=== PATIENT | female | born 1950 | race African-American/Black ===

== ENCOUNTER 2017-06-29 12:22 | Inpatient (IN) | payer MEDICAID, MEDICARE ==
[~2017-06-29] VITALS: Ht 154.9 cm; Wt 73.5 kg
[2017-06-29 12:38] VITALS: BP 133/87
[2017-06-29] MEDS: Ipratropium 0.02% Inh Soln 2.5ml UD HHN SCH ×3 (12:47→14:00)
[2017-06-29] MEDS: Albuterol ud Inhalation HHN SCH ×3 (12:47→14:00)
[2017-06-29] MEDS ORDERED: Sodium Chloride 500ML 500 ML IV ONE (14:07)
[2017-06-29] MEDS ORDERED: Solu-MEDROL 125mg Inj IVP ONE (14:15)
[2017-06-29] MEDS ORDERED: ADVAIR HFA 115-12 GM INH (14:24)
[2017-06-29] MEDS ORDERED: METFORMIN HCL500 M1 ORAL (14:24)
[2017-06-29] MEDS ORDERED: AMLODIPINE BESYL5 MG ORAL (14:24)
[2017-06-29] MEDS ORDERED: ALBUTEROL2.5 MG/3 M INH (14:24)
[2017-06-29 14:43] LABS: BASOPHILS % (AUTO) 1.2 % (0.0-2.0); EOSINOPHILS % (AUTO) 1.7 % (0.0-3.0); HEMATOCRIT 42.5 % (37.0-47.0); LYMPHOCYTES % (AUTO) 25.8 % (20.0-45.0); MEAN CORPUSCULAR VOLUME 89 FL (80-99); MONOCYTES % (AUTO) 6.2 % (1.0-10.0); PLATELET COUNT 314 K/UL (150-450); RED BLOOD COUNT 4.77 M/UL (4.20-5.40); RED CELL DISTRIBUTION WIDTH 11.5 % (11.6-14.8); WHITE BLOOD COUNT 11.4 K/UL (4.8-10.8)
[2017-06-29 14:54] LABS: ANION GAP 11 mmol/L (5-15); BLOOD UREA NITROGEN 10 mg/dL (7-18); CARBON DIOXIDE 27 MMOL/L (21-32); CHLORIDE 100 MMOL/L (98-107); CREATININE 0.9 MG/DL (0.55-1.30); POTASSIUM 3.3 MMOL/L (3.5-5.1); SODIUM 138 MMOL/L (136-145)
[2017-06-29 15:00] VITALS: BP 151/80
[2017-06-29 15:08] LABS: ALANINE AMINOTRANSFERASE 38 U/L (12-78); ALBUMIN 3.9 G/DL (3.4-5.0); ALBUMIN/GLOBULIN RATIO 0.8 (1.0-2.7); ALKALINE PHOSPHATASE 141 U/L (46-116); ASPARTATE AMINO TRANSFERASE 22 U/L (15-37); BILIRUBIN,TOTAL 0.6 MG/DL (0.2-1.0)
--- NOTE | 2017-06-29 15:12 | Emergency Room Report ---
History of Present Illness General Chief Complaint: Asthma Source: Patient, Medical Record Present Illness HPI 66-year-old female presents ED for evaluation. Patient complaining of shortness of breath and wheezing the last 3 days. History of asthma/COPD. Denies fevers or chills. Denies chest pain. States cough which is dry. No other aggravating relieving factors. Denies any other associated symptoms Allergies: Uncoded Allergies: SULFA (Allergy, Unknown, 05/05/15) Patient History Past Medical History: DM, HTN, asthma, COPD Past Surgical History: none Pertinent Family History: none Social History: Denies: smoking, alcohol use, drug use Now: No Immunizations: UTD Reviewed Nursing Documentation: PMH: Agreed, PSxH: Agreed Nursing Documentation-PMH Past Medical History: No History, Except For Hx Hypertension: Yes Hx Asthma: Yes Hx COPD: Yes Hx Diabetes: Yes Review of Systems All Other Systems: negative except mentioned in HPI Physical Exam Vital Signs Date Time Temp Pulse Resp B/P (MAP) Pulse Ox O2 Delivery O2 Flow Rate FiO2 06/29/17 12:28 98.0 124 18 130/73 99 Room Air 98.1 Sp02 EP Interpretation: reviewed, normal General Appearance: no apparent distress, alert, GCS 15, non-toxic Head: normocephalic, atraumatic Eyes: bilateral eye normal inspection, bilateral eye PERRL ENT: hearing grossly normal, normal pharynx, no angioedema, normal voice Neck: full range of motion, supple/symm/no masses Respiratory: chest non-tender, speaking full sentences, wheezing Cardiovascular #1: regular rate, rhythm, no edema Cardiovascular #2: 2+ carotid (R), 2+ carotid (L), 2+ radial (R), 2+ radial (L) , 2+ dorsalis pedis (R), 2+ dorsalis pedis (L) Gastrointestinal: normal bowel sounds, non tender, soft, non-distended, no guarding, no rebound Rectal: deferred Genitourinary: normal inspection, no CVA tenderness Musculoskeletal: back normal, gait/station normal, normal range of motion, non- tender Neurologic: alert, oriented x3, responsive, motor strength/tone normal, sensory intact, speech normal Psychiatric: judgement/insight normal, memory normal, mood/affect normal, no suicidal/homicidal ideation Reflexes: 3+ bicep (R), 3+ bicep (L), 3+ tricep (R), 3+ tricep (L), 3+ knee (R) , 3+ knee (L) Skin: normal color, no rash, warm/dry, well hydrated Lymphatic: no adenopathy Medical Decision Making Diagnostic Impression: Primary Impression: COPD exacerbation ER Course Hospital Course 64-year-old F presenting to ED with SOB. h/o COPD Differential diagnoses include: Pneumonia, CHF exacerbation, pneumothorax, fluid overload Clinical course Patient placed on stretcher. On campus monitor with stable vitals. After initial history and physical, I ordered nebulizer treatments. I ordered labs, IV fluids, EKG, chest x-ray, blood cultures, UA. Labs - noted leukocytosis noted, hemoglobin/hematocrit stable, electrolytes okay, lactate > 3, troponins negative CXR - no infiltrates EKG - NSR, no acute ischemic changes interpreted by me abx given. ivfs given. Patient will be admitted for further inpatient workup I feel this is a highly complex case requiring extensive working including EKG/ Rhythm strip, Xray/CT/US, Blood/urine lab work, repeat exams while in ED, and administration of strong opiates/narcotics for pain control, admission to hospital or close patient follow up. Diagnosis - COPD exacerbation Patient admitted to telemetry in serious condition Labs Test 06/29/17 14:20 White Blood Count 11.4 K/UL (4.8-10.8) Red Blood Count 4.77 M/UL (4.20-5.40) Hemoglobin 14.0 G/DL (12.0-16.0) Hematocrit 42.5 % (37.0-47.0) Mean Corpuscular Volume 89 FL (80-99) Mean Corpuscular Hemoglobin 29.3 PG (27.0-31.0) Mean Corpuscular Hemoglobin Concent 32.9 G/DL (32.0-36.0) Red Cell Distribution Width 11.5 % (11.6-14.8) Platelet Count 314 K/UL (150-450) Mean Platelet Volume 7.1 FL (6.5-10.1) Neutrophils (%) (Auto) 65.0 % (45.0-75.0) Lymphocytes (%) (Auto) 25.8 % (20.0-45.0) Monocytes (%) (Auto) 6.2 % (1.0-10.0) Eosinophils (%) (Auto) 1.7 % (0.0-3.0) Basophils (%) (Auto) 1.2 % (0.0-2.0) Sodium Level 138 MMOL/L (136-145) Potassium Level 3.3 MMOL/L (3.5-5.1) Chloride Level 100 MMOL/L (98-107) Carbon Dioxide Level 27 MMOL/L (21-32) Anion Gap 11 mmol/L (5-15) Blood Urea Nitrogen 10 mg/dL (7-18) Creatinine 0.9 MG/DL (0.55-1.30) Estimat Glomerular Filtration Rate > 60 mL/min (>60) Glucose Level 193 MG/DL (74-106) Lactic Acid Level 3.60 mmol/L (0.66-2.22) Calcium Level 10.0 MG/DL (8.5-10.1) Total Bilirubin 0.6 MG/DL (0.2-1.0) Aspartate Amino Transf (AST/SGOT) 22 U/L (15-37) Alanine Aminotransferase (ALT/SGPT) 38 U/L (12-78) Alkaline Phosphatase 141 U/L (46-116) Pro-B-Type Natriuretic Peptide 47 pg/mL (0-125) Total Protein 8.5 G/DL (6.4-8.2) Albumin 3.9 G/DL (3.4-5.0) Globulin 4.6 g/dL Albumin/Globulin Ratio 0.8 (1.0-2.7) EKG Diagnostic Results Rate: tachycardiac Rhythm: NSR ST Segments: no acute changes ASA given to the pt in ED: No Rhythm Strip Diag. Results EP Interpretation: yes Rhythm: NSR, no PVC's, no ectopy Chest X-Ray Diagnostic Results Chest X-Ray Diagnostic Results : Chest X-Ray Ordered: Yes # of Views/Limited/Complete: 1 View Indication: Shortness of Breath EP Interpretation: Yes Interpretation: no consolidation, no effusion, no pneumothorax, no acute cardiopulmonary disease Impression: No acute disease Electronically Signed by: Electronically signed by Nino Loomis MD Last Vital Signs Date Time Temp Pulse Resp B/P (MAP) Pulse Ox O2 Delivery O2 Flow Rate FiO2 2/23/18 14:30 124 18 100 Room Air 06/29/17 12:38 98.1 133/87 98.1 Status: improved Disposition: XFER SHT-TRM HOSP Condition: Serious Referrals: [facility],REFERRING (PCP) NINO LOOMIS M.D. Jun 29, 2017 15:12
[2017-06-29] MEDS ORDERED: NS 1000ml 2,200 ML IVLG ONE (15:30)
[2017-06-29 15:49] LABS: BILIRUBIN, URINE NEGATIVE (NEGATIVE); GLUCOSE, URINE (UA) NEGATIVE (NEGATIVE); KETONES,URINE 3+ (NEGATIVE); LEUKOCYTE ESTERASE ,URINE 3+ (NEGATIVE); NITRITE,URINE NEGATIVE (NEGATIVE); PH,URINE 5 (4.5-8.0); PROTEIN,URINE 2+ (NEGATIVE); UROBILINOGEN,URINE NORMAL MG/DL (0.0-1.0)
[2017-06-29 15:50] LABS: APPEARANCE,URINE CLEAR; COLOR,URINE YELLOW
--- NOTE | 2017-06-29 15:51 | Diagnostic Imaging Report ---
Indication: Cough Technique: One view of the chest Comparison: none Findings: Lungs and pleural spaces are clear. Heart size is upper limits normal Impression: No acute process
[2017-06-29 16:56] VITALS: BP 157/78
[2017-06-29] MEDS ORDERED: MULTIVITAMINS1 EAC2 ORAL (18:21)
[2017-06-29] MEDS ORDERED: VITAMIN D250000 UNI1 ORAL (18:21)
[2017-06-29 18:30] VITALS: BP 164/93
[2017-06-29 20:23] VITALS: BP 143/88
[2017-06-30] VITALS: BP 154/90
[2017-06-30] MEDS: Solu-MEDROL 40mg Inj IVP SCH ×5 (00:20→23:43)
[2017-06-30] MEDS: Albuterol/Ipratropium 3ml neb HHN SCH ×4 (01:31→19:34)
[2017-06-30 04:00] VITALS: BP 159/88
[2017-06-30 08:00] VITALS: BP 144/86
[2017-06-30] MEDS: metFORMIN 500mg tab ORAL SCH ×2 (08:46→17:26)
[2017-06-30 12:00] VITALS: BP 147/81
[2017-06-30] MEDS: guaiFENesin w/Codeine 5ml Liq ud ORAL PRN (13:43)
[2017-06-30 16:00] VITALS: BP 143/72
--- NOTE | 2017-06-30 16:00 | History and Physical Report ---
DATE OF ADMISSION: 06/29/2017 HISTORY OF PRESENT ILLNESS: This is a 66-year-old female with a long-standing history of bronchial asthma/COPD. She came to the hospital with shortness of breath and wheezing. She is symptomatic for the last 3 days. She states she had upper respiratory infection. She denies any fevers or myalgias. She takes Advair and ProAir at home for COPD. ALLERGIES: Sulfa. PAST MEDICAL HISTORY: Notable for hypertension, diabetes, asthma and COPD. PAST SURGICAL HISTORY: None. SOCIAL HISTORY: Denies alcohol, tobacco, or substance use. REVIEW OF SYSTEMS: She denies any headaches, hematemesis, melena, hematochezia, or weight loss. PHYSICAL EXAMINATION: GENERAL: Reveals a 66-year-old female. HEENT: Unremarkable. CHEST: Exam showed bilateral rhonchi and wheezing. ABDOMEN: Soft. NEUROLOGIC: Nonfocal. VITAL SIGNS: Blood pressure 130/70, heart rate 74, and respiratory rate . She is afebrile. LABORATORY DATA: Lab testing shows normal CBC and BMP. White count borderline . Chemistry is unremarkable. Lactic acid 3.6, now 4.6. IMAGING STUDIES: X-ray of the chest is negative for any acute pathology. No infiltrates are noted. EKG shows sinus tachycardia. IMPRESSION: 1. Acute exacerbation of bronchial asthma. 2. Chronic obstructive pulmonary disease. 3. Hypertension. 4. Diabetes. DISCUSSION: Admit to the hospital. We will start the patient on steroids and antibiotics. Continue home medications such as at this time, include amlodipine and metformin. We will check laboratories in a.m. including lactic acid. Order SCDs. 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 Jose Cummings M.D. DR: KVNG JOB#: [id number] CC:
[2017-06-30 20:00] VITALS: BP 150/80
[2017-07-01] VITALS: BP 136/61
[2017-07-01] MEDS: Albuterol/Ipratropium 3ml neb HHN SCH ×2 (01:33→06:52)
[2017-07-01] MEDS: guaiFENesin w/Codeine 5ml Liq ud ORAL PRN ×2 (02:09→09:20)
[2017-07-01 04:00] VITALS: BP 132/68
[2017-07-01] MEDS: Solu-MEDROL 40mg Inj IVP SCH ×2 (06:10→12:00)
[2017-07-01 08:00] VITALS: BP 148/84
[2017-07-01 08:09] LABS: HEMATOCRIT 36.7 % (37.0-47.0); HEMOGLOBIN 12.7 G/DL (12.0-16.0); MEAN CORPUSCULAR VOLUME 87 FL (80-99); PLATELET COUNT 306 K/UL (150-450); RED BLOOD COUNT 4.24 M/UL (4.20-5.40); RED CELL DISTRIBUTION WIDTH 11.3 % (11.6-14.8); WHITE BLOOD COUNT 19.9 K/UL (4.8-10.8)
[2017-07-01 08:26] LABS: ANION GAP 11 mmol/L (5-15); BLOOD UREA NITROGEN 16 mg/dL (7-18); CALCIUM 9.4 MG/DL (8.5-10.1); CARBON DIOXIDE 24 MMOL/L (21-32); CHLORIDE 102 MMOL/L (98-107); CREATININE 0.8 MG/DL (0.55-1.30); POTASSIUM 3.7 MMOL/L (3.5-5.1); SODIUM 137 MMOL/L (136-145)
[2017-07-01] MEDS: metFORMIN 500mg tab ORAL SCH (09:20)
--- NOTE | 2017-07-01 11:59 | Pulmonology Progress Note ---
Assessment/Plan Assessment/Plan IMPRESSION: 1. Acute exacerbation of bronchial asthma. 2. Chronic obstructive pulmonary disease. 3. Hypertension. 4. Diabetes. DISCUSSION: DC home on PO steroid and levaquin Subjective Interval Events: less SOB;opverall better Constitutional: Reports: no symptoms HEENT: Repors: no symptoms Respiratory: Reports: no symptoms Cardiovascular: Reports: no symptoms Gastrointestinal/Abdominal: Reports: no symptoms Allergies: Uncoded Allergies: SULFA (Allergy, Unknown, 05/05/15) Objective Last 24 Hour Vital Signs Date Time Temp Pulse Resp B/P (MAP) Pulse Ox O2 Delivery O2 Flow Rate FiO2 07/01/17 09:20 100 132/68 07/01/17 06:55 100 20 100 Room Air 21 07/01/17 06:45 95 20 98 Room Air 21 07/01/17 04:00 100 07/01/17 04:00 97.0 100 23 132/68 93 Room Air 97.0 07/01/17 01:34 102 20 99 Room Air 21 07/01/17 01:33 98 20 96 Room Air 21 07/01/17 00:00 97.5 103 22 136/61 94 Room Air 97.5 07/01/17 00:00 103 06/30/17 20:00 98.4 125 22 150/80 95 Room Air 98.4 06/30/17 20:00 119 06/30/17 19:33 106 20 99 Room Air 21 06/30/17 19:32 101 20 98 Room Air 21 06/30/17 16:00 112 06/30/17 16:00 98.2 118 18 143/72 95 98.2 06/30/17 12:47 104 18 99 Room Air 06/30/17 12:37 103 18 97 Room Air 06/30/17 12:00 104 06/30/17 12:00 98.2 110 21 147/81 96 98.2 Intake and Output 06/30/17 07/01/17 19:00 07:00 Intake Total 800 ml Balance 800 ml Intake Oral 800 ml # Voids 5 General Appearance: no acute distress HEENT: normocephalic Respiratory/Chest: chest wall non-tender, lungs clear Cardiovascular: normal peripheral pulses, normal rate Abdomen: normal bowel sounds Microbiology Date/Time Source Procedure Growth Status 06/29/17 14:20 Blood Blood Culture - Preliminary NO GROWTH AFTER 24 HOURS Resulted 06/29/17 14:20 Blood Blood Culture - Preliminary NO GROWTH AFTER 24 HOURS Resulted 06/29/17 14:20 Nasal Nares Influenza Types A,B Antigen (ERINN) - Final Complete 06/29/17 15:20 Urine,Clean Catch Urine Culture - Preliminary Mixed Gram Positive Organism Resulted Laboratory Tests 07/01/17 07:40: White Blood Count 19.9H, Red Blood Count 4.24, Hemoglobin 12.7, Hematocrit 36.7L , Mean Corpuscular Volume 87, Mean Corpuscular Hemoglobin 30.0, Mean Corpuscular Hemoglobin Concent 34.6, Red Cell Distribution Width 11.3L, Platelet Count 306, Mean Platelet Volume 6.6, Neutrophils (%) (Auto) , Lymphocytes (%) (Auto) , Monocytes (%) (Auto) , Eosinophils (%) (Auto) , Basophils (%) (Auto) , Differential Total Cells Counted 100, Neutrophils % ( Manual) 83H, Lymphocytes % (Manual) 15L, Monocytes % (Manual) 2, Eosinophils % ( Manual) 0, Basophils % (Manual) 0, Band Neutrophils 0, Platelet Estimate Adequate, Platelet Morphology Normal, Red Blood Cell Morphology Normal, Sodium Level 137, Potassium Level 3.7, Chloride Level 102, Carbon Dioxide Level 24, Anion Gap 11, Blood Urea Nitrogen 16, Creatinine 0.8, Estimat Glomerular Filtration Rate > 60, Glucose Level 247H, Lactic Acid Level 3.40H, Calcium Level 9.4 07/01/17 10:15: Lactic Acid Level 6.60H Current Medications Medications (Trade) Dose Ordered Sig/Crys Route PRN Reason Start Time Stop Time Status Last Admin Dose Admin Albuterol/ Ipratropium (Albuterol/ Ipratropium) 3 ml Q6HRT HHN 06/30/17 01:00 07/05/17 00:59 07/01/17 06:52 Amlodipine Besylate (Norvasc) 5 mg DAILY ORAL 06/30/17 09:00 07/30/17 08:59 07/01/17 09:20 Guaifenesin/ Codeine Phosphate (Robitussin with codeine) 5 ml Q6H PRN ORAL For Cough 06/30/17 09:45 07/30/17 09:44 07/01/17 09:20 Metformin HCl (Glucophage) 500 mg TWICE A DAY ORAL 06/30/17 09:00 07/30/17 08:59 07/01/17 09:20 Methylprednisolone Sodium Succinate (Solu-MEDROL) 40 mg EVERY 6 HOURS IVP 06/30/17 00:00 07/30/17 00:00 07/01/17 06:10 Jose Cummings MD Jul 01, 2017 11:59
[2017-07-01 12:00] VITALS: BP 159/77
[2017-07-01] MEDS ORDERED: LEVAQUIN500 MG ORAL (12:00)
[2017-07-01] MEDS ORDERED: MEDROL4 MG ORAL (12:00)
--- NOTE | 2017-07-01 16:29 | Cardiology Report ---
APPROVED REPORT EKG Measurement Heart [id number] Sinus tachycardia Right atrial enlargement Cannot rule out Anterior infarct, age undetermined Abnormal ECG
--- NOTE | 2017-07-03 08:34 | Discharge Summary ---
Discharge Summary Hospital Course Date of Admission Jun 29, 2017 at 15:06 Date of Discharge Jul 01, 2017 at 13:00 Admitting Diagnosis asthma exacerbation HPI Annette Mares is a 66 year old female who was admitted on Jun 29, 2017 at 15:06 for Asthma Exacerbation Hospital Course dc summary #[id number] Discharge Medications New Medications: Levofloxacin* (Levaquin*) 500 Mg Tablet 500 MG ORAL DAILY for 7 Days, TAB Methylprednisolone* (Medrol*) 4 Mg Tablet 4 MG ORAL DAILY, #10 TAB 0 Refills Continued Medications: Albuterol Sulfate* (Albuterol Sulfate Hhn*) 2.5 Mg/3 Ml Vial.neb 3 ML INH Q4H PRN for Shortness of Breath, EA Amlodipine Besylate* (Amlodipine Besylate*) 5 Mg Tablet 5 MG ORAL DAILY, TAB Ergocalciferol (Vitamin D2)* (Vitamin D*) 50,000 Unit Capsule [id number] UNIT ORAL ONCE A WEEK, CAP Fluticasone/Salmeterol (Advair Hfa 115-21 Mcg Inhaler) 12 Gm Hfa.aer.ad 1 PUFFS INH EVERY 12 HOURS, EA Metformin Hcl* (Metformin Hcl*) 500 Mg Tablet 500 MG ORAL TWICE A DAY, TAB Multivitamins* (Multivitamins*) 1 Each Tablet 1 TAB ORAL DAILY, TAB 0 Refills Discharge Condition Upon Discharge: stable Discharge Disposition Patient was discharged to Home () Discharge Diagnoses: Discharge Instructions Discharge Instructions Special Instructions I have been assigned to complete a D/C Summary on this account. I was not involved in the patient management Helen Wellington NP (Vanchtein) Jul 03, 2017 08:34
--- NOTE | 2017-07-03 23:45 | Discharge Summary 2 SIG ---
DATE OF ADMISSION: 06/29/2017 DATE OF DISCHARGE: 07/01/2017 REASON FOR ADMISSION: 66 years old female with a history of asthma, chronic obstructive pulmonary disease, hypertension, and diabetes, presented to the emergency room with complaint of shortness of breath and wheezing for three days. She denied chest pain, fever, or chills. Lactic acid -3.6. WBC -11.4. Chest x-ray revealed no acute cardiopulmonary pathology. EKG showed sinus tachycardia, heart rate of 124. Renal parameters were stable. Hemoglobin and hematocrit within normal limits. Potassium -3.3. The patient was admitted with acute exacerbation of bronchial asthma, chronic obstructive pulmonary disease, hypertension, and diabetes. HOSPITAL COURSE: The patient was admitted. Supplemental oxygen provided as needed to keep pulse oximetry above 92%. Pulmonary toilet via handheld nebulizing with bronchodilator was provided. The patient was started on IV steroids and empiric antibiotics. Sputum culture was not collected since cough was nonproductive. Antitussives provided as needed. Blood culture were negative. Influenza screen was negative. Urine culture revealed mixed Gram-positive organisms. Home medications were resumed including amlodipine for blood pressure control and metformin for blood sugar management. The patient was on SCD for mechanical prophylaxis of DVT.Prior to discharge, pulse oximetry stable on room air. The patient was stable for discharge home on oral steroids with gradual tapering and oral antibiotics to complete the course. FINAL DIAGNOSES: 1. Acute exacerbation of bronchial asthma. 2. Chronic obstructive pulmonary disease. 3. Hypertension. 4. Diabetes. DISCHARGE MEDICATIONS: See medication reconciliation list. DISCHARGE INSTRUCTIONS: The patient discharged home. Follow up with the primary care provider next week. Jose Cummings M.D. I have been assigned to dictate discharge summary on this account and I was not involved in the patient's management. Helen Mccoyrojelio N.P. DR: LUKE JOB#: [id number] CC: BELLO
== END 2017-07-01 13:00 | disposition home or self-care (01) | DRG 203 ==
LOC: EMR 13:10 → 2E 15:06 → EDBEDREQSVC 15:27 → EDBEDREQ 16:05
DX: J45.901 Unspecified asthma with (acute) exacerbation (principal); J44.9 Chronic obstructive pulmonary disease, unspecified; E11.9 Type 2 diabetes mellitus without complications; I10 Essential (primary) hypertension; Z88.2 Allergy status to sulfonamides
CPT/HCPCS: 36415; 71045; 80048; 80053; 81003; 82962; 83605; 83880; 85007; 85025; 86710; 87040; 87086; 93005; 94640; 94664; 99285; J7620